=== PATIENT | male | born 1950 | race Two or more races ===

== ENCOUNTER 2017-10-24 12:43 | Emergency (ER) | payer MEDICAID ==
[~2017-10-24] VITALS: Ht 167.6 cm; Wt 70.8 kg
[~2017-10-24 12:43] MED LIST: ALLOPURINOL300 M1 ORAL; AMLODIPINE BESY10 MG ORAL; ANTIVERT25 MG ORAL; ASPIR 8181 MG ORAL; GEMFIBROZIL600 MG ORAL
[2017-10-24 12:54] VITALS: BP 149/82
[2017-10-24 14:31] VITALS: BP 132/69
[2017-10-24] MEDS ORDERED: ZOFRAN4 MG ORAL (15:06)
[2017-10-24] MEDS ORDERED: MECLIZINE HCL25 MG ORAL (15:06)
[2017-10-24 15:34] VITALS: BP 117/68
--- NOTE | 2017-10-24 18:34 | Emergency Room Report ---
History of Present Illness General Chief Complaint: Dizziness Source: Patient Present Illness HPI The patient is a 67-year-old male who presented after increased dizziness. Patient prior history of vertigo. The patient was having worsening of symptoms with head movements. Patient states that this was slightly worse with a left- sided down.He denies any ringing in his ears or fever. He denied feeling presyncopal Allergies: Coded Allergies: No Known Allergies (Unverified , 07/06/16) Patient History Past Medical History: see triage record Reviewed Nursing Documentation: PMH: Agreed, PSxH: Agreed Nursing Documentation-PMH Hx Hypertension: Yes Review of Systems All Other Systems: negative except mentioned in HPI Physical Exam Vital Signs Date Time Temp Pulse Resp B/P (MAP) Pulse Ox O2 Delivery O2 Flow Rate FiO2 10/24/17 12:54 97.9 78 16 149/82 99 Room Air General Appearance: well appearing, no apparent distress Head: normocephalic, atraumatic ENT: hearing grossly normal, normal voice Neck: full range of motion, supple Respiratory: no respiratory distress, speaking full sentences Cardiovascular #1: normal inspection, normal peripheral pulses, regular rate, rhythm Gastrointestinal: normal inspection, non tender, soft Musculoskeletal: no calf tenderness Neurologic: normal inspection, alert, oriented x3, responsive, administrative assistant coordinator III-XII nml as tested, normal gait Psychiatric: mood/affect normal Skin: no rash Medical Decision Making Diagnostic Impression: Primary Impression: Vertigo ER Course Patient presented for dizziness. Differential diagnosis included was not limited to CVA, vertebrobasilar insufficiency, myocardial infarction, benign positional vertigo, labyrinthitis, aspirin overdose among others. The patient has exam consistent with peripheral vertigo likely do to benign positional vertigo. Patient was given oral meclizine. Patient had improvement in symptoms. the patient was to followup for recheck with ENT. Patient given prescription for meclizine Last Vital Signs Date Time Temp Pulse Resp B/P (MAP) Pulse Ox O2 Delivery O2 Flow Rate FiO2 10/24/17 15:34 70 19 117/68 96 Room Air 10/24/17 14:31 98.0 Status: improved Disposition: HOME, SELF-CARE Condition: Stable Scripts Meclizine Hcl* (MECLIZINE*) 25 Mg Tablet 25 MG ORAL THREE TIMES A DAY, #30 TAB Prov: Tim Scott 11/23/17 Ondansetron (Zofran) 4 Mg Tablet 4 MG ORAL Q6H Y for Nausea & Vomiting, #30 TAB 0 Refills Prov: Tim Scott 10/24/17 Referrals: NON PHYSICIAN (PCP) Patient Instructions: Vertigo Tim Scott Oct 24, 2017 18:34
== END 2017-10-24 15:36 | disposition home or self-care (01) ==
LOC: EDBD 12:43 → EMR 13:30
DX: R42 Dizziness and giddiness (principal); I10 Essential (primary) hypertension
CPT/HCPCS: 99284

== ENCOUNTER 2018-09-19 14:03 | Emergency (ER) | payer MEDICAID ==
[~2018-09-19] VITALS: Ht 162.6 cm; Wt 59.0 kg
[~2018-09-19 14:03] MED LIST changes: +MECLIZINE HCL25 MG ORAL; +ZOFRAN4 MG ORAL
[2018-09-19] MEDS ORDERED: TERBINAFINE HC250 MG PO (14:20)
[2018-09-19] MEDS ORDERED: LISINOPRIL30 MG ORAL (14:20)
--- NOTE | 2018-09-19 14:24 | Emergency Room Report ---
History of Present Illness General Chief Complaint: Headache Source: Patient, Medical Record Present Illness HPI Patient is a 68-year-old male presented after increased headache in generalized weakness for approximately 2 weeks. Patient reports having intermittent headaches. This is associated with some dizziness sensation. Patient reports having prior prostate surgery as well as medications for hypertension. Patient denies any recent trauma. He had not been vomiting. Allergies: Coded Allergies: No Known Allergies (Unverified , 07/06/16) Patient History Past Medical History: see triage record Reviewed Nursing Documentation: PMH: Agreed; PSxH: Agreed Nursing Documentation-PMH Past Medical History: No History, Except For Hx Hypertension: Yes Review of Systems All Other Systems: negative except mentioned in HPI Physical Exam Vital Signs Date Time Temp Pulse Resp B/P (MAP) Pulse Ox O2 Delivery O2 Flow Rate FiO2 09/19/18 14:16 98.8 72 16 150/87 96 Room Air 98.8 Sp02 EP Interpretation: reviewed, normal General Appearance: normal inspection, well appearing, no apparent distress, alert, GCS 15 Head: atraumatic ENT: normal ENT inspection, hearing grossly normal, normal voice Neck: normal inspection, full range of motion, supple, no bony tend Respiratory: normal inspection, lungs clear, normal breath sounds, no respiratory distress, no retraction, no wheezing Cardiovascular #1: regular rate, rhythm, no edema Gastrointestinal: normal inspection, normal bowel sounds, non tender, soft, no guarding, no hernia Genitourinary: no CVA tenderness Musculoskeletal: normal inspection, back normal, normal range of motion Neurologic: normal inspection, alert, responsive, speech normal Psychiatric: normal inspection, judgement/insight normal, mood/affect normal Skin: normal inspection, normal color, no rash Medical Decision Making Diagnostic Impression: Primary Impression: Headache Additional Impression: Dehydration ER Course Patient presented for headache. Differential diagnoses included but was not limited to skull fracture, subarachnoid hemorrhage, meningitis, aneurysm, mass lesion, intracranial hemorrhage. Because of complexity of patient's case laboratory testing and imaging studies were ordered. The patient noted to have the unremarkable CT of head. The laboratory studies are notable for elevated BUN/creatinine ratio consistent with dehydration. The patient is given pain medications. Patient was advised follow-up with his primary care physician for reexamination and treatment. Labs Test 09/19/18 14:29 09/19/18 14:50 White Blood Count 7.1 K/UL (4.8-10.8) Red Blood Count 4.93 M/UL (4.70-6.10) Hemoglobin 15.7 G/DL (14.2-18.0) Hematocrit 45.4 % (42.0-52.0) Mean Corpuscular Volume 92 FL (80-99) Mean Corpuscular Hemoglobin 31.8 PG (27.0-31.0) Mean Corpuscular Hemoglobin Concent 34.6 G/DL (32.0-36.0) Red Cell Distribution Width 11.3 % (11.6-14.8) Platelet Count 248 K/UL (150-450) Mean Platelet Volume 6.5 FL (6.5-10.1) Neutrophils (%) (Auto) 63.6 % (45.0-75.0) Lymphocytes (%) (Auto) 23.3 % (20.0-45.0) Monocytes (%) (Auto) 8.6 % (1.0-10.0) Eosinophils (%) (Auto) 2.3 % (0.0-3.0) Basophils (%) (Auto) 2.2 % (0.0-2.0) Prothrombin Time 10.7 SEC (9.30-11.50) Prothromb Time International Ratio 1.0 (0.9-1.1) Activated Partial Thromboplast Time 30 SEC (23-33) Sodium Level 141 MMOL/L (136-145) Potassium Level 4.5 MMOL/L (3.5-5.1) Chloride Level 108 MMOL/L (98-107) Carbon Dioxide Level 22 MMOL/L (21-32) Anion Gap 12 mmol/L (5-15) Blood Urea Nitrogen 33 mg/dL (7-18) Creatinine 1.2 MG/DL (0.55-1.30) Estimat Glomerular Filtration Rate 59.9 mL/min (>60) Glucose Level 136 MG/DL (74-106) Calcium Level 9.2 MG/DL (8.5-10.1) Total Bilirubin 0.6 MG/DL (0.2-1.0) Aspartate Amino Transf (AST/SGOT) 25 U/L (15-37) Alanine Aminotransferase (ALT/SGPT) 33 U/L (12-78) Alkaline Phosphatase 107 U/L (46-116) Total Protein 7.9 G/DL (6.4-8.2) Albumin 3.6 G/DL (3.4-5.0) Globulin 4.3 g/dL Thyroid Stimulating Hormone (TSH) 1.907 uiU/mL (0.358-3.740) Urine Color Pale yellow Urine Appearance Clear Urine pH 5 (4.5-8.0) Urine Specific [place] 1.015 (1.005-1.035) Urine Protein Negative (NEGATIVE) Urine Glucose (UA) Negative (NEGATIVE) Urine Ketones Negative (NEGATIVE) Urine Blood Negative (NEGATIVE) Urine Nitrite Negative (NEGATIVE) Urine Bilirubin Negative (NEGATIVE) Urine Urobilinogen Normal MG/DL (0.0-1.0) Urine Leukocyte Esterase Negative (NEGATIVE) Urine RBC 0-2 /HPF (0 - 0) Urine WBC 0-2 /HPF (0 - 0) Urine Squamous Epithelial Cells None /LPF (NONE/OCC) Urine Bacteria Few /HPF (NONE) Last Vital Signs Date Time Temp Pulse Resp B/P (MAP) Pulse Ox O2 Delivery O2 Flow Rate FiO2 09/19/18 14:16 98.8 72 16 150/87 96 Room Air 98.8 Status: improved Disposition: HOME, SELF-CARE Condition: Stable Scripts Meclizine Hcl* (MECLIZINE*) 25 Mg Tablet 25 MG ORAL THREE TIMES A DAY, #20 TAB Prov: Tim Scott MD 09/19/18 Tim Scott MD Sep 19, 2018 14:24
[2018-09-19 14:44] LABS: BASOPHILS % (AUTO) 2.2 % (0.0-2.0); EOSINOPHILS % (AUTO) 2.3 % (0.0-3.0); HEMATOCRIT 45.4 % (42.0-52.0); HEMOGLOBIN 15.7 G/DL (14.2-18.0); LYMPHOCYTES % (AUTO) 23.3 % (20.0-45.0); MEAN CORPUSCULAR VOLUME 92 FL (80-99); MONOCYTES % (AUTO) 8.6 % (1.0-10.0); NEUTROPHILS % (AUTO) 63.6 % (45.0-75.0); PLATELET COUNT 248 K/UL (150-450); RED BLOOD COUNT 4.93 M/UL (4.70-6.10); RED CELL DISTRIBUTION WIDTH 11.3 % (11.6-14.8); WHITE BLOOD COUNT 7.1 K/UL (4.8-10.8)
[2018-09-19 14:54] LABS: ANION GAP 12 mmol/L (5-15); BLOOD UREA NITROGEN 33 mg/dL (7-18); CALCIUM 9.2 MG/DL (8.5-10.1); CARBON DIOXIDE 22 MMOL/L (21-32); CHLORIDE 108 MMOL/L (98-107); CREATININE 1.2 MG/DL (0.55-1.30); POTASSIUM 4.5 MMOL/L (3.5-5.1); SODIUM 141 MMOL/L (136-145)
[2018-09-19 15:11] LABS: ALANINE AMINOTRANSFERASE 33 U/L (12-78); ALBUMIN 3.6 G/DL (3.4-5.0); ALKALINE PHOSPHATASE 107 U/L (46-116); ASPARTATE AMINO TRANSFERASE 25 U/L (15-37); BILIRUBIN,TOTAL 0.6 MG/DL (0.2-1.0)
[2018-09-19 15:14] LABS: APPEARANCE,URINE CLEAR; BILIRUBIN, URINE NEGATIVE (NEGATIVE); COLOR,URINE PALE YELLOW; GLUCOSE, URINE (UA) NEGATIVE (NEGATIVE); KETONES,URINE NEGATIVE (NEGATIVE); LEUKOCYTE ESTERASE ,URINE NEGATIVE (NEGATIVE); NITRITE,URINE NEGATIVE (NEGATIVE); PH,URINE 5 (4.5-8.0); PROTEIN,URINE NEGATIVE (NEGATIVE); UROBILINOGEN,URINE NORMAL MG/DL (0.0-1.0)
--- NOTE | 2018-09-19 15:20 | Diagnostic Imaging Report ---
Indications: Technique: Spiral acquisitions obtained through the brain. Angled axial and coronal 5 x 5 mm slices were reconstructed. Total dose length product 1316.27 mGycm. CTDI vol(s) 70.38 mGy. Dose reduction achieved using automated exposure control Comparison: Increased headache and generalized weakness for 2 weeks, dizziness Findings: No acute intracranial hemorrhage or edema. No mass effect nor midline shift. Normal mei-white differentiation. Normal-sized ventricles and extra-axial CSF spaces. Intact calvarium. Mastoids are clear. Visualized orbits and sinuses are unremarkable Impression: Negative The CT scanner at [facility] is accredited by the [employer] and the scans are performed using protocols designed to limit radiation exposure to as low as reasonably achievable to attain images of sufficient resolution adequate for diagnostic evaluation.
[2018-09-19] MEDS ORDERED: Meclizine 25mg tab ORAL ONE (15:30)
[2018-09-19] MEDS ORDERED: MECLIZINE HCL25 MG ORAL (15:37)
[2018-09-19 15:55] VITALS: BP 124/82
== END 2018-09-19 15:55 | disposition home or self-care (01) ==
LOC: EMR 14:24
DX: R51 Headache (principal); E86.0 Dehydration; I10 Essential (primary) hypertension
CPT/HCPCS: 36415; 70450; 80053; 81001; 84443; 85025; 85610; 85651; 85730; 99284

== ENCOUNTER 2019-05-08 16:25 | Observation (INO) | payer MEDICAID ==
[~2019-05-08] VITALS: Ht 165.1 cm; Wt 80.7 kg
[~2019-05-08 16:25] MED LIST changes: +LISINOPRIL30 MG ORAL; +TERBINAFINE HC250 MG PO
[2019-05-08] MEDS ORDERED: LIPITOR10 MG ORAL (16:38)
[2019-05-08 16:42] VITALS: BP 150/75
--- NOTE | 2019-05-08 16:43 | NUR ---
ED Nurse Note:pt. came with c/o dizziness, VSS, he is ambulatory with steady gait, A/Ox4 ,was placed on secured entrance monitor and seen by ER
[2019-05-08] MEDS ORDERED: LORazepam Inj 2mg/ml 1ml IV ONE (17:00)
[2019-05-08 17:14] LABS: BASOPHILS % (AUTO) 1.8 % (0.0-2.0); EOSINOPHILS % (AUTO) 1.8 % (0.0-3.0); HEMATOCRIT 43.1 % (42.0-52.0); HEMOGLOBIN 15.2 G/DL (14.2-18.0); LYMPHOCYTES % (AUTO) 25.4 % (20.0-45.0); MEAN CORPUSCULAR VOLUME 89 FL (80-99); MONOCYTES % (AUTO) 7.8 % (1.0-10.0); NEUTROPHILS % (AUTO) 63.2 % (45.0-75.0); PLATELET COUNT 226 K/UL (150-450); RED BLOOD COUNT 4.85 M/UL (4.70-6.10); RED CELL DISTRIBUTION WIDTH 11.4 % (11.6-14.8); WHITE BLOOD COUNT 7.7 K/UL (4.8-10.8)
[2019-05-08 17:16] LABS: APPEARANCE,URINE CLEAR; BILIRUBIN, URINE NEGATIVE (NEGATIVE); COLOR,URINE PALE YELLOW; GLUCOSE, URINE (UA) NEGATIVE (NEGATIVE); KETONES,URINE NEGATIVE (NEGATIVE); LEUKOCYTE ESTERASE ,URINE NEGATIVE (NEGATIVE); NITRITE,URINE NEGATIVE (NEGATIVE); PH,URINE 6 (4.5-8.0); PROTEIN,URINE NEGATIVE (NEGATIVE); UROBILINOGEN,URINE NORMAL MG/DL (0.0-1.0)
[2019-05-08 17:24] LABS: ANION GAP 7 mmol/L (5-15); BLOOD UREA NITROGEN 18 mg/dL (7-18); CALCIUM 9.8 MG/DL (8.5-10.1); CARBON DIOXIDE 27 MMOL/L (21-32); CHLORIDE 101 MMOL/L (98-107); CREATININE 1.1 MG/DL (0.55-1.30); POTASSIUM 4.4 MMOL/L (3.5-5.1); SODIUM 135 MMOL/L (136-145)
[2019-05-08 17:25] LABS: INR 0.9 (0.9-1.1)
--- NOTE | 2019-05-08 17:26 | Emergency Room Report ---
History of Present Illness General Chief Complaint: Dizziness Source: Patient, Family Member Present Illness HPI Patient presents with dizziness and chest pain that began on Saturday.These episodes are associated with blood pressure being low. He loses vision and feels 3/10 chest pressure during that time.There's been no change in his medications. He feels or palpitations. He does start to feel anxious and had tingling in his hands and feet with increased shortness of breath during those times.Is a slight amount of nausea but denies any vomiting, coffee grounds or melena. He denies chest pain now. No medication taken aside from usual BP meds. Patient has a history of hypertension on medication. He used to smoke stopped 10 years ago he denies diabetes or family history of cardiac problems The patient is been evaluated in the past with exercise treadmills. He's had no cardiac procedures performed. No fevers, chills, palpitations, diarrhea, dysuria, abdominal pain, depression, visual changes, headache. Allergies: Coded Allergies: No Known Allergies (Unverified , 07/06/16) Patient History Past Medical History: see triage record Social History: Denies: smoking - Former, alcohol use, drug use Social History Narrative retired from [employer] Documentation-[employer] Hx Hypertension: Yes Review of Systems All Other Systems: negative except mentioned in HPI Physical Exam Vital Signs Date Time Temp Pulse Resp B/P (MAP) Pulse Ox O2 Delivery O2 Flow Rate FiO2 05/08/19 16:30 98.6 68 16 156/91 (112) 98 Room Air Sp02 EP Interpretation: reviewed, normal General Appearance: well appearing, no apparent distress, GCS 15 Head: normocephalic Eyes: bilateral eye normal inspection, bilateral eye PERRL, bilateral eye EOMI ENT: moist mucus membranes Neck: supple Respiratory: lungs clear, normal breath sounds Cardiovascular #1: regular rate, rhythm Cardiovascular #2: 2+ radial (R) Gastrointestinal: normal inspection, normal bowel sounds, non tender, no mass, non-distended Musculoskeletal: back normal, gait/station normal, normal range of motion Neurologic: alert, oriented x3, motor strength/tone normal, DTRs symmetric, sensory intact, cerebellar normal, normal gait Psychiatric: anxious Skin: normal inspection, warm/dry Medical Decision Making Diagnostic Impression: Primary Impression: Chest pain Qualified Codes: R07.9 - Chest pain, unspecified Additional Impressions: Hypotension Qualified Codes: I95.9 - Hypotension, unspecified Dizziness ER Course Patient presents with chest pressure and hypotension. Differential includes acute myocardial infarction, pulmonary embolus, acute coronary syndrome, dehydration, anxiety, anemia amongst others. Patient was evaluated with EKG, chest x-ray and labs. The patient will receive gentle IV hydration. He will be given aspirin and a small dose of Ativan. EKG without injury. CXR no infiltrates. Initial troponin neg. Improved with treatment, but needs observation for repeat troponins and monitoring of BP. Admit obs tele Dr. Gonzalez. Laboratory Tests Test 05/08/19 16:50 White Blood Count 7.7 K/UL (4.8-10.8) Red Blood Count 4.85 M/UL (4.70-6.10) Hemoglobin 15.2 G/DL (14.2-18.0) Hematocrit 43.1 % (42.0-52.0) Mean Corpuscular Volume 89 FL (80-99) Mean Corpuscular Hemoglobin 31.4 PG (27.0-31.0) H Mean Corpuscular Hemoglobin Concent 35.4 G/DL (32.0-36.0) Red Cell Distribution Width 11.4 % (11.6-14.8) L Platelet Count 226 K/UL (150-450) Mean Platelet Volume 6.0 FL (6.5-10.1) L Neutrophils (%) (Auto) 63.2 % (45.0-75.0) Lymphocytes (%) (Auto) 25.4 % (20.0-45.0) Monocytes (%) (Auto) 7.8 % (1.0-10.0) Eosinophils (%) (Auto) 1.8 % (0.0-3.0) Basophils (%) (Auto) 1.8 % (0.0-2.0) Prothrombin Time 10.0 SEC (9.30-11.50) Prothrombin Time INR 0.9 (0.9-1.1) PTT 27 SEC (23-33) Urine Color Pale yellow Urine Appearance Clear Urine pH 6 (4.5-8.0) Urine Specific [place] 1.005 (1.005-1.035) Urine Protein Negative (NEGATIVE) Urine Glucose (UA) Negative (NEGATIVE) Urine Ketones Negative (NEGATIVE) Urine Blood Negative (NEGATIVE) Urine Nitrite Negative (NEGATIVE) Urine Bilirubin Negative (NEGATIVE) Urine Urobilinogen Normal MG/DL (0.0-1.0) Urine Leukocyte Esterase Negative (NEGATIVE) Sodium Level 135 MMOL/L (136-145) L Potassium Level 4.4 MMOL/L (3.5-5.1) Chloride Level 101 MMOL/L (98-107) Carbon Dioxide Level 27 MMOL/L (21-32) Anion Gap 7 mmol/L (5-15) Blood Urea Nitrogen 18 mg/dL (7-18) Creatinine 1.1 MG/DL (0.55-1.30) Estimate Glomerular Filtration Rate mL/min (>60) Glucose Level 95 MG/DL (74-106) Calcium Level 9.8 MG/DL (8.5-10.1) Total Bilirubin 0.7 MG/DL (0.2-1.0) Aspartate Amino Transferase (AST) 30 U/L (15-37) Alanine Aminotransferase (ALT) 44 U/L (12-78) Alkaline Phosphatase 95 U/L (46-116) Total Creatine Kinase 91 U/L (26-308) Troponin I 0.000 ng/mL (0.000-0.056) Pro-B-Type Natriuretic Peptide 30 pg/mL (0-125) Total Protein 8.2 G/DL (6.4-8.2) Albumin 4.1 G/DL (3.4-5.0) Globulin 4.1 g/dL Albumin/Globulin Ratio 1.0 (1.0-2.7) Urine Opiates Screen Negative (NEGATIVE) Urine Barbiturates Screen Negative (NEGATIVE) Phencyclidine (PCP) Screen Negative (NEGATIVE) Urine Amphetamines Screen Negative (NEGATIVE) Urine Benzodiazepines Screen Negative (NEGATIVE) Urine Cocaine Screen Negative (NEGATIVE) Urine Marijuana (THC) Screen Negative (NEGATIVE) EKG Diagnostic Results Rate: bradycardiac - 58 Rhythm: NSR ST Segments: no acute changes - RBBB Rhythm Strip Diag. Results EP Interpretation: yes Rhythm: no PVC's, no ectopy, other - kanu Chest X-Ray Diagnostic Results Chest X-Ray Diagnostic Results : Chest X-Ray Ordered: Yes # of Views/Limited/Complete: 1 View Indication: Chest Pain EP Interpretation: Yes Interpretation: no consolidation, no effusion, no pneumothorax Impression: No acute disease Electronically Signed by: Electronically signed by Gabriel High MD Last Vital Signs Date Time Temp Pulse Resp B/P (MAP) Pulse Ox O2 Delivery O2 Flow Rate FiO2 05/09/19 00:00 98.2 59 20 127/65 (85) 97 05/08/19 18:29 Room Air Status: improved Disposition: PLACE IN OBSERVATION Condition: Serious Gabriel High MD May 08, 2019 17:26
[2019-05-08 17:33] VITALS: BP_SYST 134; BP_SYST 149; BP_SYST 165; BP_DIAS 75; BP_DIAS 80; BP_DIAS 85
[2019-05-08 17:35] LABS: ALANINE AMINOTRANSFERASE 44 U/L (12-78); ALBUMIN 4.1 G/DL (3.4-5.0); ALKALINE PHOSPHATASE 95 U/L (46-116); ASPARTATE AMINO TRANSFERASE 30 U/L (15-37); BILIRUBIN,TOTAL 0.7 MG/DL (0.2-1.0); CREATINE KINASE 91 U/L (26-308)
--- NOTE | 2019-05-08 17:35 | NUR ---
ED Nurse Note:blood and urine sent to labs and orthostatic VS done
--- NOTE | 2019-05-08 17:49 | Diagnostic Imaging Report ---
Indication: Chest pain Technique: One view of the chest Comparison: 07/06/2016 Findings: Lungs and pleural spaces are clear. Heart size is normal. No significant interim change Impression: No acute process
[2019-05-08 17:59] VITALS: BP 126/72
--- NOTE | 2019-05-08 18:30 | NUR ---
ED Nurse Note:called report to tele-given to Keith
--- NOTE | 2019-05-08 18:35 | NUR ---
NURSE NOTES: Received patient via rney, report given by KRIS Cartwright. Pt is sitting in bed, in stable condition . Pt is AOx4, with some confusion. Breathing is even and unlabored in room air. Heart monitor on. No acute distress noted at this time. Bed in lowest position with brake engaged and side rails up x2. Call light and side table placed within reach. Will continue to monitor.
--- NOTE | 2019-05-08 19:43 | NUR ---
HAND-OFF: Report given to KRIS Aguirre.
[2019-05-08 20:00] VITALS: BP 145/80
[2019-05-09] VITALS: BP 127/65
[2019-05-09 04:00] VITALS: BP 140/72
--- NOTE | 2019-05-09 07:47 | NUR ---
HAND-OFF: Report given to KRIS Pearson. Pt stable.
--- NOTE | 2019-05-09 07:58 | NUR ---
NURSE NOTES: Received report from KRIS Aguirre. Patient in bed resting, no active s/s cardiac, respiratory distress noticed at this time. Patient on room air, AOx4, SB with HR 54, denies pain at this time. IV on left AC 20G, asymptomatic, patent, intact. Endorsed EKG done, SB with right BBB. Bed in lowest position, side rails upx3, call light within reach. Will continue to monitor.
[2019-05-09 08:00] VITALS: BP 138/78
[2019-05-09 08:07] LABS: BASOPHILS % (AUTO) 1.6 % (0.0-2.0); EOSINOPHILS % (AUTO) 3.9 % (0.0-3.0); HEMATOCRIT 42.9 % (42.0-52.0); HEMOGLOBIN 14.8 G/DL (14.2-18.0); LYMPHOCYTES % (AUTO) 26.2 % (20.0-45.0); MEAN CORPUSCULAR VOLUME 92 FL (80-99); MONOCYTES % (AUTO) 8.3 % (1.0-10.0); NEUTROPHILS % (AUTO) 59.9 % (45.0-75.0); PLATELET COUNT 210 K/UL (150-450); RED BLOOD COUNT 4.66 M/UL (4.70-6.10); RED CELL DISTRIBUTION WIDTH 11.9 % (11.6-14.8); WHITE BLOOD COUNT 6.2 K/UL (4.8-10.8)
[2019-05-09 08:48] LABS: ANION GAP 9 mmol/L (5-15); BLOOD UREA NITROGEN 18 mg/dL (7-18); CALCIUM 9.4 MG/DL (8.5-10.1); CARBON DIOXIDE 25 MMOL/L (21-32); CHLORIDE 104 MMOL/L (98-107); CHOLESTEROL 131 MG/DL (< 200); CREATININE 1.1 MG/DL (0.55-1.30); HDL CHOLESTEROL 30 MG/DL (40-60); POTASSIUM 4.6 MMOL/L (3.5-5.1); SODIUM 138 MMOL/L (136-145); TRIGLYCERIDES 88 MG/DL (30-150)
[2019-05-09] MEDS: Lisinopril 20mg tab ORAL SCH (09:05)
[2019-05-09] MEDS: Aspirin EC 81mg tab ORAL SCH (09:05)
[2019-05-09] MEDS: Heparin 5000 units/ml inj SUBQ SCH ×2 (09:06→21:12)
[2019-05-09 12:00] VITALS: BP 138/76
--- NOTE | 2019-05-09 15:15 | History and Physical ---
History of Present Illness General Date patient seen: May 09, 2019 Time patient seen: 09:20 Reason for Hospitalization: Dizziness Present Illness HPI 69 y/o M who came to the ED complaining of dizziness and precordial discomfort. On admission he was found to have normal EKG and negative troponin. Admission was requested by the ED and currently his second troponin is negative. TTE is underway. He reports that he had episodes of chest pain in the past and reports prior cardiac workup (possibly stress test ) one year ago at [facility] ( no records ) . He is chest pain free and feels returning to his baseline now. Allergies: Coded Allergies: No Known Allergies (Unverified , 07/06/16) Medication History Scheduled Allopurinol* (Allopurinol*), 300 MG ORAL DAILY, (Reported) Amlodipine Besylate* (Amlodipine Besylate*), 5 MG ORAL DAILY, (Reported) Aspirin* (Aspir 81*), 81 MG ORAL DAILY, (Reported) Atorvastatin Calcium* (Lipitor*), 10 MG ORAL BEDTIME, (Reported) Lisinopril* (Lisinopril*), 20 MG ORAL DAILY, (Reported) Meclizine Hcl* (Antivert*), 25 MG ORAL THREE TIMES A DAY Meclizine Hcl* (Meclizine*), 25 MG ORAL THREE TIMES A DAY Meclizine Hcl* (Meclizine*), 25 MG ORAL THREE TIMES A DAY Terbinafine Hcl* (Lamisil*), 250 MG PO DAILY, (Reported) Scheduled PRN Ondansetron (Zofran), 4 MG ORAL Q6H PRN for Nausea & Vomiting Miscellaneous Medications Gemfibrozil (Gemfibrozil*), 600 MG ORAL, (Reported) Patient History Healthcare decision maker Resuscitation status Full Code Advanced Directive on File Review of Systems Cardiovascular: Reports: chest pain Neurological: Reports: dizziness Physical Exam General Appearance: WD/WN, no apparent distress Lines, tubes and drains: peripheral HEENT: normocephalic Neck: non-tender Respiratory/Chest: lungs clear Breasts: no masses Cardiovascular/Chest: normal rate, regular rhythm Abdomen: normal bowel sounds, non tender Extremities: normal range of motion Skin Exam: normal pigmentation Neurologic: furnace cooler II-XII grossly normal Last 24 Hour Vital Signs Date Time Temp Pulse Resp B/P (MAP) Pulse Ox O2 Delivery O2 Flow Rate FiO2 05/09/19 12:00 71 05/09/19 12:00 98.4 59 20 138/76 (96) 97 05/09/19 09:05 138/78 05/09/19 09:05 71 138/78 05/09/19 09:00 Room Air 05/09/19 08:00 98.1 71 20 138/78 (98) 99 05/09/19 08:00 75 05/09/19 06:42 Room Air 05/09/19 04:00 54 05/09/19 04:00 98.6 55 20 140/72 (94) 99 05/09/19 00:00 57 05/09/19 00:00 98.2 59 20 127/65 (85) 97 05/08/19 20:00 96.9 67 18 145/80 (101) 98 05/08/19 20:00 62 05/08/19 18:29 98.6 71 16 126/72 98 Room Air 05/08/19 17:59 98.6 71 16 126/72 98 Room Air 05/08/19 17:33 59 134/75 64 149/80 72 165/85 05/08/19 16:42 98.6 61 16 150/75 98 Room Air 05/08/19 16:42 68 16 Room Air 05/08/19 16:30 98.6 68 16 156/91 (112) 98 Room Air Intake and Output 05/08/19 05/09/19 19:00 07:00 # Voids 1 Laboratory Tests Test 05/08/19 16:50 05/09/19 05:36 05/09/19 10:05 White Blood Count 7.7 K/UL (4.8-10.8) 6.2 K/UL (4.8-10.8) Red Blood Count 4.85 M/UL (4.70-6.10) 4.66 M/UL (4.70-6.10) L Hemoglobin 15.2 G/DL (14.2-18.0) 14.8 G/DL (14.2-18.0) Hematocrit 43.1 % (42.0-52.0) 42.9 % (42.0-52.0) Mean Corpuscular Volume 89 FL (80-99) 92 FL (80-99) Mean Corpuscular Hemoglobin 31.4 PG (27.0-31.0) H 31.8 PG (27.0-31.0) H Mean Corpuscular Hemoglobin Concent 35.4 G/DL (32.0-36.0) 34.5 G/DL (32.0-36.0) Red Cell Distribution Width 11.4 % (11.6-14.8) L 11.9 % (11.6-14.8) Platelet Count 226 K/UL (150-450) 210 K/UL (150-450) Mean Platelet Volume 6.0 FL (6.5-10.1) L 7.5 FL (6.5-10.1) Neutrophils (%) (Auto) 63.2 % (45.0-75.0) 59.9 % (45.0-75.0) Lymphocytes (%) (Auto) 25.4 % (20.0-45.0) 26.2 % (20.0-45.0) Monocytes (%) (Auto) 7.8 % (1.0-10.0) 8.3 % (1.0-10.0) Eosinophils (%) (Auto) 1.8 % (0.0-3.0) 3.9 % (0.0-3.0) H Basophils (%) (Auto) 1.8 % (0.0-2.0) 1.6 % (0.0-2.0) Prothrombin Time 10.0 SEC (9.30-11.50) Prothromb Time International Ratio 0.9 (0.9-1.1) Activated Partial Thromboplast Time 27 SEC (23-33) Urine Color Pale yellow Urine Appearance Clear Urine pH 6 (4.5-8.0) Urine Specific [place] 1.005 (1.005-1.035) Urine Protein Negative (NEGATIVE) Urine Glucose (UA) Negative (NEGATIVE) Urine Ketones Negative (NEGATIVE) Urine Blood Negative (NEGATIVE) Urine Nitrite Negative (NEGATIVE) Urine Bilirubin Negative (NEGATIVE) Urine Urobilinogen Normal MG/DL (0.0-1.0) Urine Leukocyte Esterase Negative (NEGATIVE) Sodium Level 135 MMOL/L (136-145) L 138 MMOL/L (136-145) Potassium Level 4.4 MMOL/L (3.5-5.1) 4.6 MMOL/L (3.5-5.1) Chloride Level 101 MMOL/L (98-107) 104 MMOL/L (98-107) Carbon Dioxide Level 27 MMOL/L (21-32) 25 MMOL/L (21-32) Anion Gap 7 mmol/L (5-15) 9 mmol/L (5-15) Blood Urea Nitrogen 18 mg/dL (7-18) 18 mg/dL (7-18) Creatinine 1.1 MG/DL (0.55-1.30) 1.1 MG/DL (0.55-1.30) Estimat Glomerular Filtration Rate mL/min (>60) mL/min (>60) Glucose Level 95 MG/DL (74-106) 116 MG/DL (74-106) H Calcium Level 9.8 MG/DL (8.5-10.1) 9.4 MG/DL (8.5-10.1) Total Bilirubin 0.7 MG/DL (0.2-1.0) Aspartate Amino Transf (AST/SGOT) 30 U/L (15-37) Alanine Aminotransferase (ALT/SGPT) 44 U/L (12-78) Alkaline Phosphatase 95 U/L (46-116) Total Creatine Kinase 91 U/L (26-308) Troponin I 0.000 ng/mL (0.000-0.056) 0.000 ng/mL (0.000-0.056) 0.000 ng/mL (0.000-0.056) Pro-B-Type Natriuretic Peptide 30 pg/mL (0-125) Total Protein 8.2 G/DL (6.4-8.2) Albumin 4.1 G/DL (3.4-5.0) Globulin 4.1 g/dL Albumin/Globulin Ratio 1.0 (1.0-2.7) Urine Opiates Screen Negative (NEGATIVE) Urine Barbiturates Screen Negative (NEGATIVE) Phencyclidine (PCP) Screen Negative (NEGATIVE) Urine Amphetamines Screen Negative (NEGATIVE) Urine Benzodiazepines Screen Negative (NEGATIVE) Urine Cocaine Screen Negative (NEGATIVE) Urine Marijuana (THC) Screen Negative (NEGATIVE) Hemoglobin A1c 5.8 % (4.3-6.0) Triglycerides Level 88 MG/DL (30-150) Cholesterol Level 131 MG/DL (< 200) LDL Cholesterol 69 mg/dL (<100) HDL Cholesterol 30 MG/DL (40-60) L Cholesterol/HDL Ratio 4.4 (3.3-4.4) Thyroid Stimulating Hormone (TSH) 5.291 uiU/mL (0.358-3.740) Height (Feet): 5 Height (Inches): 5.00 Weight (Pounds): 178 Medications Current Medications Medications (Trade) Dose Ordered Sig/Bruce Route PRN Reason Start Time Stop Time Status Last Admin Dose Admin Allopurinol (Allopurinol) 300 mg DAILY ORAL 05/09/19 09:00 06/08/19 08:59 05/09/19 09:05 Amlodipine Besylate (Norvasc) 5 mg DAILY ORAL 05/09/19 09:00 06/08/19 08:59 05/09/19 09:05 Aspirin (Ecotrin) 81 mg DAILY ORAL 05/09/19 09:00 06/08/19 08:59 05/09/19 09:05 Atorvastatin Calcium (Lipitor) 10 mg BEDTIME ORAL 05/09/19 21:00 06/08/19 20:59 Heparin Sodium (Porcine) (Heparin 5000 units/ml) 5,000 units EVERY 12 HOURS SUBQ 05/09/19 09:00 06/08/19 08:59 05/09/19 09:06 Lisinopril (Prinivil) 20 mg DAILY ORAL 05/09/19 09:00 06/08/19 08:59 05/09/19 09:05 Assessment/Plan Status: doing well Assessment/Plan: 69 year old M admitted with: # Dizziness etiology unclear, currently resolved and back to baseline. Monitor. # Chest pain. Resolved Troponin is negative and TTE pending to rule out WMA Evaluate EF Low risk based on negative troponin x 2 Lipid panel # Disposition Pending TTE and improvement. Monitor for return to baseline and dc in 24 hours most likely. Akanksha Curran MD May 09, 2019 15:15
[2019-05-09 16:00] VITALS: BP 109/71
--- NOTE | 2019-05-09 19:22 | NUR ---
HAND-OFF: Report given to KRIS Garber.
--- NOTE | 2019-05-09 19:22 | NUR ---
NURSE NOTES: OBTAINED REPORT FROM KASSANDRA PONCE. PT IN BED FREE FROM APPARENT DISTRESS.
[2019-05-09 20:00] VITALS: BP 116/65
[2019-05-10] VITALS: BP 118/74
[2019-05-10 04:12] VITALS: BP 114/67
--- NOTE | 2019-05-10 07:09 | NUR ---
HAND-OFF: REPORT GIVEN TO KASSANDRA PONCE. PT RESTING IN BED FREE FROM APPARENT DISTRESS. CALL LIGHT WITHIN REACH AT ALL TIMES.
--- NOTE | 2019-05-10 07:46 | NUR ---
NURSE NOTES: Received report from KRIS Garber. Patient in bed resting, no active s/s cardiac, respiratory distress noticed at this time. Patient on room air, AOx4, SB w/ BBB with HR 56. Denies pain at this time. IV on left AC 20G, asymptomatic, patent, intact. Bed in lowest position, side rails upx3, call light within reach. Will continue to monitor.
[2019-05-10 08:00] VITALS: BP 149/80
[2019-05-10 08:24] VITALS: BP 149/80
[2019-05-10] MEDS: Lisinopril 20mg tab ORAL SCH (08:24)
[2019-05-10] MEDS: Aspirin EC 81mg tab ORAL SCH (08:24)
[2019-05-10] MEDS: Heparin 5000 units/ml inj SUBQ SCH (08:25)
--- NOTE | 2019-05-10 10:16 | Discharge Instructions ---
Discharge Instructions Discharge Instructions Diet: 2 GM sodium (low sodium) Resume Normal Activity?: Yes Activity: resume normal activities Follow Up Orders if recurrent chest pain, consult MD for follow up Return to Work/School on: May 10, 2019 For Surgical Patients May shower: Yes Contact your physician for: pain For Congestive Heart Failure Reminder Report to your physician any weight gain of 5 pounds or more in one week. Akanksha Curran MD May 10, 2019 10:16
--- NOTE | 2019-05-10 10:18 | NUR ---
NURSE NOTES: Dr. Curran at the nursing station, made aware of TSH level 5.291. No order given at this time, will continue to monitor.
--- NOTE | 2019-05-10 10:27 | Discharge Summary ---
Discharge Summary Hospital Course Date of Admission May 08, 2019 at 17:37 Date of Discharge May 10, 2019 Admitting Diagnosis chest pain Reason for Hospitalization: chest pain HPI Basim Villalobos is a 69 year old male who was admitted on May 08, 2019 at 17:37 for Chest Pain Procedures TTE EF 60 % mild LVH Grade I diastolic dysfunction Hospital Course 69 year old M admitted with: # Dizziness etiology unclear, currently resolved and back to baseline. Normal vital signs, no orthostatic changes. # Chest pain. Resolved Troponin is negative x 3 and TTE without any wall motion abnormality, EF is preserved at 60 %, grade 1 diastolic dysfunction. # Hyperlipidemia Lipid panel reviewed and will continue therapy with gemfibrozil and atorvastatin. # Hypertension Continue therapy with lisinopril and amlodipine Recommend to follow up with PCP and return to the ER if recurrent chest pain. There is no acute indication for stress test at this time and symptoms are atypical with negative echocardiogram and troponin x 3. Discharge Discharge Disposition Patient was discharged to Discharge Instructions Discharge Instructions Activity: resume normal activities May Return to Work/School On: May 10, 2019 For Surgical Patients May shower: Yes Contact your physician for: Akanksha Menezes MD May 10, 2019 10:27
--- NOTE | 2019-05-10 11:25 | NUR ---
NURSE NOTES: Patient discharged to home per Dr. Curran. [facility] and cardiac cath lab manager returned to personnel monitor. Patient with family members taking private vehicle per patient's preference in a stable condition. Patient discharged with all belongings.
--- NOTE | 2019-05-12 14:32 | Cardiology Report ---
APPROVED REPORT EXAM: Two-dimensional and M-mode echocardiogram with Doppler and color Doppler. INDICATION Chest Pain M-Mode DIMENSIONS IVSd1.9 (0.7-1.1cm)Left Atrium (MM)3.2 (1.6-4.0cm) LVDd5.6 (3.5-5.6cm)Aortic Root3.3 (2.0-3.7cm) PWd1.3 (0.7-1.1cm)Aortic Cusp Exc.2.0 (1.5-2.0cm) LVDs3.5 (2.5-4.0cm) PWs1.2 cm Normal left ventricular chamber size, systolic function and wall motion. Left ventricular ejection fraction estimated to be 55- 60 %. Mild left ventricular hypertrophy. No evidence of pericardial effusion. Left atrial chamber sized is within normal limits. Right atrial chamber sizes is within normal limits. Right ventricular chamber sizes at upper limits of normal. Focal aortic valve sclerosis with adequate cusp excursion. Thickened mitral valve leaflets with normal excursion. Mitral annulus and aortic root calcification. Pulmonic valve not well visualized. Normal tricuspid valve structure. IVC is normal in size with physiological collapse. A color flow and spectral Doppler study was performed and revealed: No aortic insufficiency. No mitral regurgitation. Mitral diastolic velocities suggest mild left ventricular diastolic dysfunction (Grade I). Trace tricuspid regurgitation. Tricuspid systolic velocities suggests peak right ventricular systolic pressure of 13 mmHg. No pulmonic regurgitation present.
--- NOTE | 2019-05-12 15:08 | Cardiology Report ---
APPROVED REPORT EKG Measurement Heart [id number] Sinus bradycardia Right bundle branch block Abnormal ECG
--- NOTE | 2019-05-12 15:10 | Cardiology Report ---
APPROVED REPORT EKG Measurement Heart [id number] Sinus bradycardia Right bundle branch block Abnormal ECG
== END 2019-05-10 11:46 | disposition home or self-care (01) ==
LOC: EDBEDREQ 17:07 → EMR 17:35 → 2E 17:37 → EDBEDREQ 17:48
DX: R07.9 Chest pain, unspecified (principal); R42 Dizziness and giddiness; E78.5 Hyperlipidemia, unspecified; I10 Essential (primary) hypertension; I95.9 Hypotension, unspecified; I45.10 Unspecified right bundle-branch block; R00.1 Bradycardia, unspecified; Z79.82 Long term (current) use of aspirin; R93.1 Abnormal findings on diagnostic imaging of heart and coronary circulation; Z79.899 Other long term (current) drug therapy; Z87.891 Personal history of nicotine dependence
CPT/HCPCS: 36415; 71045; 80048; 80053; 80061; 80307; 81003; 82550; 83036; 83880; 84443; 84484; 85025; 85610; 85730; 93005; 93306; 99285; G0378; J1644

== ENCOUNTER 2019-08-11 11:34 | Emergency (ER) | payer MEDICAID ==
[~2019-08-11] VITALS: Ht 170.2 cm; Wt 73.5 kg
[~2019-08-11 11:34] MED LIST changes: +LIPITOR10 MG ORAL
--- NOTE | 2019-08-11 11:50 | NUR ---
ED Nurse Note: pt aoo x4, vss, pt walked into ed c/o of weakness x 4 days.
[2019-08-11 12:00] VITALS: BP 120/75
--- NOTE | 2019-08-11 12:24 | NUR ---
ED Nurse Note: Imaging and EKD competed.
[2019-08-11 12:44] LABS: APPEARANCE,URINE CLEAR; BILIRUBIN, URINE NEGATIVE (NEGATIVE); COLOR,URINE PALE YELLOW; GLUCOSE, URINE (UA) NEGATIVE (NEGATIVE); KETONES,URINE NEGATIVE (NEGATIVE); LEUKOCYTE ESTERASE ,URINE NEGATIVE (NEGATIVE); NITRITE,URINE NEGATIVE (NEGATIVE); PH,URINE 5 (4.5-8.0); PROTEIN,URINE NEGATIVE (NEGATIVE); UROBILINOGEN,URINE NORMAL MG/DL (0.0-1.0)
[2019-08-11 13:12] LABS: EOSINOPHILS % (AUTO) 2.1 % (0.0-3.0); HEMATOCRIT 43.8 % (42.0-52.0); HEMOGLOBIN 14.9 G/DL (14.2-18.0); MEAN CORPUSCULAR VOLUME 94 FL (80-99); MONOCYTES % (AUTO) 7.6 % (1.0-10.0); NEUTROPHILS % (AUTO) 62.4 % (45.0-75.0); PLATELET COUNT 197 K/UL (150-450); RED BLOOD COUNT 4.66 M/UL (4.70-6.10); RED CELL DISTRIBUTION WIDTH 11.5 % (11.6-14.8); WHITE BLOOD COUNT 5.3 K/UL (4.8-10.8)
[2019-08-11 13:19] LABS: ANION GAP 7 mmol/L (5-15); BLOOD UREA NITROGEN 18 mg/dL (7-18); CALCIUM 9.4 MG/DL (8.5-10.1); CARBON DIOXIDE 26 MMOL/L (21-32); CHLORIDE 106 MMOL/L (98-107); CREATININE 1.2 MG/DL (0.55-1.30); POTASSIUM 4.6 MMOL/L (3.5-5.1); SODIUM 139 MMOL/L (136-145)
[2019-08-11 13:33] LABS: ALANINE AMINOTRANSFERASE 36 U/L (12-78); ALBUMIN 3.7 G/DL (3.4-5.0); ALBUMIN/GLOBULIN RATIO 0.9 (1.0-2.7); ALKALINE PHOSPHATASE 91 U/L (46-116); ASPARTATE AMINO TRANSFERASE 31 U/L (15-37); BILIRUBIN,TOTAL 0.8 MG/DL (0.2-1.0); CKMB 1.6 NG/ML (0.0-3.6); CREATINE KINASE 121 U/L (26-308)
--- NOTE | 2019-08-11 13:56 | Emergency Room Report ---
History of Present Illness General Chief Complaint: Generalized Weakness Source: Patient Present Illness HPI Patient presents emergency department today complaining 1 week of generalized weakness 1 month of diffuse numbness. He states that he gets weak and dizzy sometimes especially when he is walking for long time. He denies any chest pain shortness of breath. Denies any fever nausea vomiting diarrhea chills. Denies any syncope dysuria urinary frequency. No other complaints are noted. Symptoms noted to be moderate. No other modifying factors. No other associated signs and symptoms. No other complaints were noted. Allergies: Coded Allergies: No Known Allergies (Unverified , 07/06/16) Patient History Past Medical History: HTN Past Surgical History: none Pertinent Family History: none Social History: Denies: smoking, alcohol use, drug use Reviewed Nursing Documentation: PMH: Agreed; PSxH: Agreed Nursing Documentation-PMH Hx Hypertension: Yes Review of Systems All Other Systems: negative except mentioned in HPI Physical Exam Vital Signs Date Time Temp Pulse Resp B/P (MAP) Pulse Ox O2 Delivery O2 Flow Rate FiO2 08/11/19 11:35 98.1 63 19 137/70 (92) 96 Room Air Sp02 EP Interpretation: reviewed, normal General Appearance: normal inspection, well appearing, no apparent distress, alert Head: atraumatic Eyes: bilateral eye normal inspection ENT: normal ENT inspection, hearing grossly normal, normal voice Neck: normal inspection, full range of motion, supple, no bony tend Respiratory: normal inspection, lungs clear, normal breath sounds, no respiratory distress, no retraction, no wheezing Cardiovascular #1: regular rate, rhythm, no edema Gastrointestinal: normal inspection, normal bowel sounds, non tender, soft, no guarding, no hernia Genitourinary: no CVA tenderness Musculoskeletal: normal inspection, back normal, normal range of motion Neurologic: normal inspection, alert, responsive, speech normal Psychiatric: normal inspection, judgement/insight normal, mood/affect normal Medical Decision Making Diagnostic Impression: Primary Impression: Episode of generalized weakness Additional Impression: Dehydration ER Course Patient presents emergency department today with generalized weakness. Differential diagnosis include acute electrolyte abnormality, dehydration, acute coronary syndrome just to name a few. Given the severity of the patient' s presentation I felt this is a highly complex patient. This patient required extensive workup. Patient laboratory work-up was negative. Patient was given fluid bolus. Patient's EKG was also negative. Patient chest x-ray is normal. Patient was monitored emergency department he had no further issues. Therefore it is felt the patient was stable for discharge. Patient is advised to follow up with primary doctor in 2-3 days and return the emergency room for any worsening symptoms and as needed. Labs Test 08/11/19 11:49 08/11/19 12:32 Urine Color Pale yellow Urine Appearance Clear Urine pH 5 (4.5-8.0) Urine Specific [place] 1.010 (1.005-1.035) Urine Protein Negative (NEGATIVE) Urine Glucose (UA) Negative (NEGATIVE) Urine Ketones Negative (NEGATIVE) Urine Blood Negative (NEGATIVE) Urine Nitrite Negative (NEGATIVE) Urine Bilirubin Negative (NEGATIVE) Urine Urobilinogen Normal MG/DL (0.0-1.0) Urine Leukocyte Esterase Negative (NEGATIVE) White Blood Count 5.3 K/UL (4.8-10.8) Red Blood Count 4.66 M/UL (4.70-6.10) Hemoglobin 14.9 G/DL (14.2-18.0) Hematocrit 43.8 % (42.0-52.0) Mean Corpuscular Volume 94 FL (80-99) Mean Corpuscular Hemoglobin 32.0 PG (27.0-31.0) Mean Corpuscular Hemoglobin Concent 34.1 G/DL (32.0-36.0) Red Cell Distribution Width 11.5 % (11.6-14.8) Platelet Count 197 K/UL (150-450) Mean Platelet Volume 7.0 FL (6.5-10.1) Neutrophils (%) (Auto) 62.4 % (45.0-75.0) Lymphocytes (%) (Auto) 26.0 % (20.0-45.0) Monocytes (%) (Auto) 7.6 % (1.0-10.0) Eosinophils (%) (Auto) 2.1 % (0.0-3.0) Basophils (%) (Auto) 2.0 % (0.0-2.0) Sodium Level 139 MMOL/L (136-145) Potassium Level 4.6 MMOL/L (3.5-5.1) Chloride Level 106 MMOL/L (98-107) Carbon Dioxide Level 26 MMOL/L (21-32) Anion Gap 7 mmol/L (5-15) Blood Urea Nitrogen 18 mg/dL (7-18) Creatinine 1.2 MG/DL (0.55-1.30) Estimat Glomerular Filtration Rate mL/min (>60) Glucose Level 99 MG/DL (74-106) Calcium Level 9.4 MG/DL (8.5-10.1) Total Bilirubin 0.8 MG/DL (0.2-1.0) Aspartate Amino Transf (AST/SGOT) 31 U/L (15-37) Alanine Aminotransferase (ALT/SGPT) 36 U/L (12-78) Alkaline Phosphatase 91 U/L (46-116) Total Creatine Kinase 121 U/L (26-308) Creatine Kinase MB 1.6 NG/ML (0.0-3.6) Creatine Kinase MB Relative Index 1.3 Troponin I 0.000 ng/mL (0.000-0.056) Total Protein 7.7 G/DL (6.4-8.2) Albumin 3.7 G/DL (3.4-5.0) Globulin 4.0 g/dL Albumin/Globulin Ratio 0.9 (1.0-2.7) EKG Diagnostic Results Rate: normal Rhythm: NSR ST Segments: other - Right bundle branch block. Rhythm Strip Diag. Results EP Interpretation: yes Rate: 58 Rhythm: NSR, no PVC's, no ectopy Chest X-Ray Diagnostic Results Chest X-Ray Diagnostic Results : Chest X-Ray Ordered: Yes # of Views/Limited/Complete: 1 View Indication: Shortness of Breath EP Interpretation: Yes Interpretation: no consolidation, no effusion, no pneumothorax, no acute cardiopulmonary disease Impression: No acute disease Electronically Signed by: Electronically signed by Konstantin Montanez MD Last Vital Signs Date Time Temp Pulse Resp B/P (MAP) Pulse Ox O2 Delivery O2 Flow Rate FiO2 08/11/19 12:00 98.1 19 120/75 96 Room Air 08/11/19 12:00 63 Status: improved Disposition: HOME, SELF-CARE Condition: Stable Referrals: NON PHYSICIAN (PCP) Patient Instructions: Konstantin Singh MD Aug 11, 2019 13:56
--- NOTE | 2019-08-11 14:05 | NUR ---
ER DISCHARGE NOTE: Patient is cleared to be discharged per ERMD, pt is aox4, on room air, with stable vital signs. pt was given dc and prescription instructions, pt was able to verbalize understanding, pt id band and iv site removed without complications. pt is able to ambulate with steady gait. pt took all belongings.
[2019-08-11 14:37] VITALS: BP 120/75
--- NOTE | 2019-08-11 15:02 | Diagnostic Imaging Report ---
Indication: Cough Technique: One view of the chest Comparison: 05/08/2019 Findings: Lungs and pleural spaces are clear. Heart size is normal. There is no significant interim change Impression: No acute process
--- NOTE | 2019-08-12 18:54 | Cardiology Report ---
APPROVED REPORT EKG Measurement Heart [id number] Sinus bradycardia Left axis deviation Right bundle branch block Abnormal ECG
== END 2019-08-11 14:10 | disposition home or self-care (01) ==
LOC: EMR 12:35
DX: R53.1 Weakness (principal); E86.0 Dehydration; I10 Essential (primary) hypertension; R06.02 Shortness of breath; I45.10 Unspecified right bundle-branch block
CPT/HCPCS: 36415; 71045; 80053; 81003; 82550; 82553; 84484; 85025; 93005; 96360; Z7502; 99284

== ENCOUNTER 2019-10-28 20:34 | Emergency (ER) | payer MEDICAID ==
[~2019-10-28] VITALS: Ht 172.7 cm; Wt 71.7 kg
[2019-10-28 20:45] VITALS: BP 168/84
--- NOTE | 2019-10-28 21:02 | Emergency Room Report ---
History of Present Illness General Chief Complaint: Abdominal Pain Source: Patient Present Illness HPI This is a 69-year-old male with history of high blood pressure. He presents with chief complaint of hematuria and mild pain. Onset about 3 to 4 days ago. It was initially some specks of blood but now more frequent. He has urgency and frequency. This happened once before but he never saw Now with some mild right flank pain. No nausea no vomiting. No fever chills. Pain is mild in nature. Nothing made it better. Urinating made it worse. No weight loss. Allergies: Coded Allergies: No Known Allergies (Unverified , 07/06/16) Patient History Past Medical History: see triage record, old chart reviewed, HTN Past Surgical History: none Pertinent Family History: none Social History: Denies: smoking Immunizations: other Reviewed Nursing Documentation: PMH: Agreed; PSxH: Agreed Nursing Documentation-PMH Past Medical History: No History, Except For Hx Hypertension: Yes Review of Systems Eye: Denies: eye pain, blurred vision ENT: Denies: ear pain, nose congestion, throat swelling Respiratory: Denies: cough, shortness of breath Cardiovascular: Denies: chest pain, palpitations Gastrointestinal: Denies: abdominal pain, diarrhea, nausea, vomiting Genitourinary: Reports: dysuria, hematuria, urgency Musculoskeletal: Reports: back pain; Denies: joint pain Skin: Denies: rash Neurological: Denies: headache, numbness Endocrine: Denies: increased thirst, increased urine Hematologic/Lymphatic: Denies: easy bruising All Other Systems: negative except mentioned in HPI Physical Exam Vital Signs Date Time Temp Pulse Resp B/P (MAP) Pulse Ox O2 Delivery O2 Flow Rate FiO2 10/28/19 20:40 98.2 62 14 165/78 (107) 98 Room Air Vitals with high blood pressure Sp02 EP Interpretation: reviewed, normal General Appearance: well appearing, no apparent distress, alert Head: normocephalic, atraumatic Eyes: bilateral eye PERRL, bilateral eye EOMI ENT: hearing grossly normal, normal pharynx Neck: full range of motion, supple, no meningismus Respiratory: chest non-tender, lungs clear, normal breath sounds Cardiovascular #1: regular rate, rhythm, no murmur Gastrointestinal: normal bowel sounds, non tender, no mass, no organomegaly, no bruit, non-distended Musculoskeletal: back normal, normal range of motion, gait/station normal Psychiatric: mood/affect normal Medical Decision Making Diagnostic Impression: Primary Impression: Bladder mass Additional Impression: Hematuria Qualified Codes: R31.0 - Gross hematuria ER Course Patient presents with gross hematuria. There is no obstruction or urinary retention. CT scan is concerning for bladder mass with neoplasm. Explained this to the patient and his family. There is no obvious urinary tract infection but a lot of cover with antibiotics. He will need referral to see a urologist. Will discharge home. CT/MRI/US Diagnostic Results CT/MRI/US Diagnostic Results : Imaging Test Ordered: CT abdomen pelvis Impression Read by radiologist read irregular bladder wall thickening. Bladder mass is suspected. Last Vital Signs Date Time Temp Pulse Resp B/P (MAP) Pulse Ox O2 Delivery O2 Flow Rate FiO2 10/28/19 20:40 98.2 62 14 165/78 (107) 98 Room Air Status: improved Disposition: HOME, SELF-CARE Condition: Stable Scripts Ciprofloxacin Hcl* (CIPROFLOXACIN HCL*) 500 Mg Tablet 500 MG ORAL Q12H, #14 TAB 0 Refills Prov: Jhony Chacon MD 10/28/19 Additional Instructions: Increase fluids. Follow-up with your doctor within a week. You will need referral to see a urologist. You will need work-up for the bladder mass. This may be a tumor/cancer. Return if worse or unable to urinate. Jhony Chacon MD Oct 28, 2019 21:02
[2019-10-28 21:21] LABS: APPEARANCE,URINE CLEAR; BILIRUBIN, URINE NEGATIVE (NEGATIVE); COLOR,URINE RED; GLUCOSE, URINE (UA) NEGATIVE (NEGATIVE); KETONES,URINE NEGATIVE (NEGATIVE); LEUKOCYTE ESTERASE ,URINE 1+ (NEGATIVE); NITRITE,URINE NEGATIVE (NEGATIVE); PH,URINE 7 (4.5-8.0); PROTEIN,URINE 4+ (NEGATIVE); UROBILINOGEN,URINE NORMAL MG/DL (0.0-1.0)
[2019-10-28 21:31] LABS: BASOPHILS % (AUTO) 2.2 % (0.0-2.0); EOSINOPHILS % (AUTO) 2.6 % (0.0-3.0); HEMATOCRIT 37.4 % (42.0-52.0); HEMOGLOBIN 13.8 G/DL (14.2-18.0); LYMPHOCYTES % (AUTO) 24.8 % (20.0-45.0); MEAN CORPUSCULAR VOLUME 88 FL (80-99); MONOCYTES % (AUTO) 7.3 % (1.0-10.0); NEUTROPHILS % (AUTO) 63.1 % (45.0-75.0); PLATELET COUNT 227 K/UL (150-450); RED BLOOD COUNT 4.28 M/UL (4.70-6.10); RED CELL DISTRIBUTION WIDTH 10.6 % (11.6-14.8); WHITE BLOOD COUNT 7.3 K/UL (4.8-10.8)
[2019-10-28 21:33] LABS: ANION GAP 9 mmol/L (5-15); BLOOD UREA NITROGEN 20 mg/dL (7-18); CARBON DIOXIDE 28 MMOL/L (21-32); CHLORIDE 105 MMOL/L (98-107); POTASSIUM 3.3 MMOL/L (3.5-5.1); SODIUM 142 MMOL/L (136-145)
[2019-10-28] MEDS ORDERED: CIPROFLOXACIN500 M2 ORAL (22:36)
[2019-10-28 23:10] VITALS: BP 158/82
== END 2019-10-28 23:10 | disposition home or self-care (01) ==
LOC: EMR 21:02
DX: N32.89 Other specified disorders of bladder (principal); R31.0 Gross hematuria; I10 Essential (primary) hypertension
CPT/HCPCS: 36415; 74176; 80048; 81003; 85025; 96360; 96361; Z7502; 99284